=== PATIENT | male | born 1965 | race Caucasian/White ===

== ENCOUNTER 2022-06-21 22:08 | Emergency (ER) | payer OTHER, SELFPAY ==
[~2022-06-21 22:08] MED LIST: Iopamidol 370 76% 100 ML VIAL ONE
[2022-06-21] MEDS ORDERED: Morphine 4 MG/ML VIAL ONE (23:36)
[2022-06-21] MEDS ORDERED: Ondansetron PF 4 MG/2 ML Vial ONE (23:36)
[2022-06-21 23:59] LABS: #Lymphocytes 1.2 thou/uL (1.20-3.40); #Neutrophils 3.2 thou/uL (1.40-6.50); %Basophils 2.3 % (0.0-1.0); %Eosinophils 1.6 % (0.0-10.0); %Lymphocytes 22.1 % (21.0-51.0); %Neutrophils 60.9 % (42.0-75.0); Hemoglobin 16.4 g/dL (14.0-18.0); Manual Diff?? NO; Mean Corpuscular HGB CONC 32.2 g/dL (32.0-36.0); Mean Corpuscular Hemoglobin 30.3 pg (27.0-31.0); Mean Platelet Volume 7.7 fL (7.4-10.4); Platelet Count 237 10x3/uL (130-400); RBC Distribution Width 11.4 % (11.5-14.5); Red Blood Cell (RBC) Count 5.42 mill/uL (4.70-6.10); White Blood Cell (WBC) Count 5.2 10x3/uL (4.8-10.8)
[2022-06-22] LABS: #Basophils 0.1 thou/uL (0.0-0.2); #Eosinphils 0.1 thou/uL (0.0-0.7); #Monocytes 0.7 thou/uL (0.11-0.59)
[2022-06-22 00:07] LABS: ALT (SGPT) 31 U/L (8-55); AST (SGOT) 32 U/L (5-34); Alkaline Phosphatase 69 U/L (40-110); Anion Gap 13 mmol/L (10-20); BUN (Urea Nitrogen) 12 mg/dL (8.4-25.7); Bilirubin, Total 0.3 mg/dL (0.2-1.2); Calc. Creatinine Clearance 0 mL/min (70-130); Calcium 8.9 mg/dL (7.8-10.44); Carbon Dioxide 22 mmol/L (22-29); Chloride 106 mmol/L (98-107); Estimated GFR 88; Globulin 2.8 g/dL (2.4-3.5); Glucose 96 mg/dL (70-105); Lipase 21 U/L (8-78); Potassium 3.9 mmol/L (3.5-5.1); Protein, Total 6.8 g/dL (6.0-8.3); Sodium 137 mmol/L (136-145)
[2022-06-22] MEDS ORDERED: Pantoprazole 40 MG VIAL ONE (00:53)
[2022-06-22 01:22] LABS: Bilirubin Negative (Negative); Blood, Urine Negative (Negative); Clarity Clear (Clear); Glucose, Urine (Dipstick) Negative (Negative); Ketone, Urine Negative (Negative); Leukocyte Negative (Negative); Nitrite Negative (Negative); Protein, Urine (Dipstick) Negative (Neg-Trace); Specific Gravity, Urine 1.008 (1.002-1.036); Urobilinogen 0.2 mg/dL (Less than 2)
== END 2022-06-22 02:06 | disposition short-term general hospital (02) ==
LOC: NAV ERS 22:08
DX: K40.30 Unilateral inguinal hernia, with obstruction, without gangrene, not specified as recurrent (principal); F17.220 Nicotine dependence, chewing tobacco, uncomplicated
CPT/HCPCS: 74177; 80053; 81003; 83690; 85025; 96374; 96375; C9113; J2270; J2405; Q9967

== ENCOUNTER 2023-11-01 19:36 | Emergency (ER) | payer OTHER ==
[2023-11-01] MEDS ORDERED: Doxycycline 100 MG CAP ONE (21:04)
[2023-11-01] MEDS ORDERED: Acetaminophen 500 MG TAB ONE (21:04)
== END 2023-11-01 21:12 | disposition home or self-care (01) ==
LOC: NAV ERS 19:36
DX: L03.115 Cellulitis of right lower limb (principal); F17.220 Nicotine dependence, chewing tobacco, uncomplicated
CPT/HCPCS: 99283